=== PATIENT | female | born 1995 | race Caucasian/White ===

== ENCOUNTER 2020-01-30 18:11 | Emergency (ER) | payer OTHER ==
[~2020-01-30] VITALS: Ht 154 cm; Wt 75.0 kg
[~2020-01-30 18:11] MED LIST: KETO75CA PO
[2020-01-30 18:19] VITALS: BP 142/76
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
--- OUTSIDE RECORDS SUMMARY | 2020-01-30 22:08 | XMS REPORT ---
Author Author [employer] patient access specialist [employer] [facility] [employer] Address [address] [address] Care Team Providers Care Coke Inspector Name Role Phone [place], [facility] TARIK DEXTER DO Unavailable Unavailable Unavailable Unavailable Unavailable Unavailable Unavailable Unavailable Allergies The data below is from unstructured sources Allergen Type Severity Reaction Status Last Updated No Known Drug Allergies Active 11/05/14 No known allergies. Encounters Encounter Date Encounter Type Encounter Diagnosis Care Provider Facility Start: Emergency department NA AZIZA dean [facility] 01-30-2020 patient visit Hospital End: 01-30-2020 Start: Emergency department TARIK DEXTER [facility] 01-30-2020 patient visit [facility] End: 01-30-2020 Start: Patient encounter NA NA [facility] 05-06-2019 procedure Center [facility] ([id number]) Medical Equipment The data below is from unstructured sourcesNo Medical Equipment Information available Goals Date Patient Goal Desired Activity/St ate Immunizations The data below is from unstructured sourcesNo immunization records.No Immunization Information AvailableNo Immunization Information Available Interventions No Information Medications No Information Payers No Information Plan of Treatment The data below is from unstructured sourcesNo plan of care. Problems Problem Problem Date Last Documented Episodic/Chr Provider Classificati Recorded Date on on E Codes: Fall NA NA Fall (1 source) Unclassified Patient encounter status NA NA (1 source) Procedures The data below is from unstructured sourcesNo known history of procedures.No procedure information available.No procedure i nformation available. Results Test Name Value Interpreta Reference Facilit Date tion Range y Time laboratory on 2019-05-07 Albumin [Mass/Vol] 4.6 g/dL Normal 3.6-5.1 Communi g/dL [facility] ([id number]) Albumin/Globulin 2.1 {ratio} Normal 1.0-2.5 Communi [Mass ratio] (calc) [facility] (02536) ALP [Catalytic 62 U/L Normal 33-115 U/L Communi activity/Vol] ty [facility] (33350) ALT [Catalytic 10 U/L Normal 6-29 U/L Communi activity/Vol] [facility] (96032) AST [Catalytic 15 U/L Normal 10-30 U/L Communi activity/Vol] [facility] (72644) Basophils (Bld) 0.05 10*3/uL Normal 0-200 Communi [#/Vol] cells/uL ty [facility] (18237) Basophils/100 WBC 0.6 % Normal % Communi (Bld) [facility] (49144) Bilirubin [Mass/Vol] 0.4 mg/dL Normal 0.2-1.2 Commu ni mg/dL ty [facility] (03417) Calcium [Mass/Vol] 9.4 mg/dL Normal 8.6-10.2 Communi mg/dL ty [facility] (26300) Chloride [Moles/Vol] 102 mmol/L Normal 98-110 Commu ni mmol/L ty [facility] (24886) CO2 [Moles/Vol] 26 mmol/L Normal 20-32 Communi mmol/L ty [facility] (68915) Creatinine 0.98 mg/dL Normal 0.50-1.10 Communi [Mass/Vol] mg/dL ty [facility] (66299) Eosinophils (Bld) 0.158 10*3/uL Normal 15-500 Commun i [#/Vol] cells/uL ty [facility] (78815) Eosinophils/100 WBC 1.9 % Normal % Commun i (Bld) [facility] (50165) Erythrocyte 12.1 % Normal 11.0-15.0 Communi distribution width % ty (RBC) [Ratio] [facility] (52717) GFR/1.73 sq 94 mL/min/{1.73_m2} Normal > OR = 60 Commun i M.predicted among mL/min/1.7 ty blacks MDRD 3m2 Health (S/P/Bld) [Vol Center rate/Area] [facility] (02637) GFR/1.73 sq 81 mL/min/{1.73_m2} Normal > OR = 60 Commun i M.predicted MDRD mL/min/1.7 ty (S/P/Bld) [Vol 3m2 Health rate/Area] [facility] (31227) Globulin (S) 2.2 g/dL Normal 1.9-3.7 Communi [Mass/Vol] g/dL ty (calc) [facility] (48728) Glucose [Mass/Vol] 73 mg/dL Normal 65-99 Communi mg/dL [facility] (18885) Hematocrit (Bld) 40.4 % Normal 35.0-45.0 Communi [Volume fraction] % [facility] (78089) Hemoglobin (Bld) 13.6 g/dL Normal 11.7-15.5 Communi [Mass/Vol] g/dL [facility] (27925) Lymphocytes (Bld) 2.648 10*3/uL Normal 850-3900 Commun i [#/Vol] cells/uL [facility] (02936) Lymphocytes/100 WBC 31.9 % Normal % Commun i (Bld) [facility] (24987) MCH (RBC) [Entitic 32.4 pg Normal 27.0-33.0 Communi mass] pg [facility] (61575) MCHC (RBC) 33.7 g/dL Normal 32.0-36.0 Communi [Mass/Vol] g/dL [facility] (05508) MCV (RBC) [Entitic 96.2 fL Normal 80.0-100.0 Communi vol] fL [facility] (73727) Monocytes (Bld) 0.44 10*3/uL Normal 200-950 Communi [#/Vol] cells/uL [facility] (51605) Monocytes/100 WBC 5.3 % Normal % Communi (Bld) ty [facility] (22722) Neutrophils (Bld) 5.005 10*3/uL Normal 4139-6800 Commun i [#/Vol] cells/uL ty [facility] (53789) Neutrophils/100 WBC 60.3 % Normal % Commun i (Bld) ty [facility] (76310) Platelet mean volume 12.1 fL Normal 7.5-12.5 Commu ni (Bld) [Entitic vol] fL ty [facility] (85126) Platelets (Bld) 217 10*3/uL Normal 140-400 Communi [#/Vol] Thousand/u ty L [facility] (06241) Potassium 4.5 mmol/L Normal 3.5-5.3 Communi [Moles/Vol] mmol/L ty [facility] (41746) Protein [Mass/Vol] 6.8 g/dL Normal 6.1-8.1 Communi g/dL ty [facility] (72425) RBC (Bld) [#/Vol] 4.20 10*6/uL Normal 3.80-5.10 Communi Million/uL ty [facility] (61162) Sodium [Moles/Vol] 139 mmol/L Normal 135-146 Communi mmol/L ty [facility] (44020) TSH Qn 1.71 m[IU]/L Normal mIU/L Communi ty [facility] (64920) Urea nitrogen 16 mg/dL Normal 7-25 mg/dL Communi [Mass/Vol] ty [facility] (16856) Urea NOT APPLICABLE Invalid 6-22 Communi nitrogen/Creatinine Interpreta (calc) ty [Mass ratio] tion Code [facility] (19414) WBC (Bld) [#/Vol] 8.3 10*3/uL Normal 3.8-10.8 Communi Thousand/u ty L [facility] (12669) Social History Date Type Detail Facility Start: Denies [facility] 01-30-2020 [facility] (59778) Start: Denies Use [facility] 11-05-2014 [facility] (51074) Start: No [facility] 11-05-2014 [facility] (08192) Start: Sex Assigned At Female [facility] 1995 [facility] (63097) Vital Signs The data below is from unstructured sources Vital Response Date/Time Temperature (Fahrenheit) 96.8 degree s F (97.6 - 99.5) Temperature (Calculated Celsius) 36. 74208 degrees C (36.4 - 37.5) Temperature Source Temporal Pulse Rate (adult) 75 bpm (60 - 90) Respiratory Rate 18 bpm (12 - 24) O2 Sat by Pulse Oximetry 99 % (88 - 100) Blood Pressure 113/72 mm Hg Pain Pain Intensity 10 Height (Feet) 5 feet Height (Inches) 0 inches Height (Calculated Centimeters) 152. 813640 cm Weight (Pounds) 110 pounds Weight (Calculated Kilograms) 49.895 161 kilograms Calculated BMI 21.48 Vital Reading Result Col lection Date/Time Vital Reading Result Col lection Date/Time Functional Status The data below is from unstructured sourcesNo functional status results.No Functional Status information availableNo Functional Status information available Mental Status The data below is from unstructured sourcesNo Mental Status Information Available Evaluation note Note Date & Note Facility Type Evaluation No Assessments Information Available [facility] Via note [facility] ([id number]) Advance Directives Directive Response Recor ded Date/Time Advance Directives No 2:41am Resuscitation Status Full Code 11/05/14 2:41am Advance Directive Response Recorded Date/Time Advance Directives No 2019 6:16pm Resuscitation Status Full Code January 30, 2020 6:16pm Discharge Instructions No hospital discharge instructions. Chief Complaint and Reason for Visit Chief Complaint General Problems/Valentin n Reason for Visit [id number] Additional Source Comments This clinical document has been generated using [employer] software that has been certified by the Office of the National Coordinator for Health Information Technology (ONC 15.99.04.3023.Diam.31.00.0.116982) and the National Committee for Launch Engineer (NCQA, as an eMeasure certified technology). FOR RECORDS PERTAINING TO PATIENTS WHO ARE OR HAVE BEEN ENROLLED IN A CHEMICAL D EPENDENCY/SUBSTANCE ABUSE PROGRAM, SOME INFORMATION MAY BE OMITTED. This clinica l summary was aggregated from multiple sources. Caution should be exercised in using it in the provision of clinical care. This summary normalizes information from multiple sources, and as a consequence, information in this document may ma terially change the coding, format and clinical context of patient data. In jerome tion, data may be omitted in some cases. CLINICAL DECISIONS SHOULD BE BASED ON T HE PRIMARY CLINICAL RECORDS. [employer] [facility]. provides no warranty or guara ntee of the accuracy or completeness of information in this document.The followi ng information is based on time limited clinical information
--- OUTSIDE RECORDS SUMMARY | 2020-01-30 22:09 | XMS REPORT | Continuity of Care Document ---
Demographics Preferred Language Unknown Marital Status Unknown Buddhism Affiliation Unknown Race Unknown Ethnic Group Unknown Author Organization Unknown Address Unknown Phone Unavailable Allergies Active Description Code Type Severity Reaction Onset Reported/Identified Relationship to Patient Clinical Status Yes No Known Drug Allergies [id number] Drug Allergy Unknown N/A 11/05/2014 Medications There is no data. Problems Date Dx Coded Attending Type Code Diagnosis Diagnosed By 11/05/2014 TIFFANY BROWN DO Ot 813.43 11/05/2014 TIFFANY BROWN DO Ot 959.3 11/05/2014 TIFFANY BROWN DO Ot E000.8 11/05/2014 TIFFANY BROWN DO Ot E849.0 11/05/2014 TIFFANY BROWN DO Ot E885.9 Procedures There is no data. Results Test Result Range TSH - 05/07/19 17:46 TSH 1.71 mIU/L NRG Encounters ACCT No. Visit Date/Time Discharge Status Pt. Type Provider Facility Loc./Unit Complaint [id number] 05/06/2019 17:00:00 Document Registration [id number] 01/30/2020 18:12:00 020 18:22:00 DIS Emergency TARIK DEXTER DO [facility] ER HEALTH SCREENIN G [id number] 11/05/2014 02:33:00 015 03:23:00 DIS Emergency TIFFANY BROWN DO [facility] ER
== END 2020-01-30 18:22 ==
LOC: EDUNIT# 18:11 → ER FS 18:12
DX: O21.9 Vomiting of pregnancy, unspecified (principal); Z3A.00 Weeks of gestation of pregnancy not specified
CPT/HCPCS: 99283